=== PATIENT | female | born 1995 | race African-American/Black ===

== ENCOUNTER 2017-06-19 20:31 | Emergency (ER) | payer MEDICAID ==
[~2017-06-19] VITALS: Ht 175.3 cm; Wt 140.6 kg
[~2017-06-19 20:31] MED LIST: BENTYL20 MG PO; FAMOTIDINE PO; NO MEDICATIONS
[2017-06-19 21:54] LABS: URINE SOURCE CLEAN CATCH
[2017-06-19 21:57] LABS: URINE APPEARANCE CLEAR; URINE BILIRUBIN NEG (NEG); URINE BLOOD NEG (NEG); URINE COLOR YELLOW; URINE GLUCOSE NEG (NORM); URINE KETONE NEG (NEG); URINE LEUKOCYTE ESTERASE NEG (NEG); URINE NITRATE NEG (NEG); URINE PROTEIN NEG (NEG); URINE SPECIFIC GRAVITY 1.025 (1.003-1.035); URINE UROBILINOGEN 0.2 MG/DL (NORM)
[2017-06-19 21:58] LABS: MICRO INDICATED? NO
[2017-06-21 16:08] LABS: CHLAMYDIA TRACH Not Detected (Not Detected); N GONOR Not Detected (Not Detected)
== END 2017-06-19 23:03 | disposition home or self-care (01) ==
LOC: SED 20:31
PROVIDERS: Nurse Practitioner Family
DX: Z20.2 Contact with and (suspected) exposure to infections with a predominantly sexual mode of transmission (principal); Z98.890 Other specified postprocedural states; Z88.0 Allergy status to penicillin
CPT/HCPCS: 81003; 84703; 87210; 87491; 87591; 87808; 87905; 99283